=== PATIENT | female | born 1930 | race Two or more races ===

== ENCOUNTER 2017-03-21 08:17 | Day surgery (SDC) | payer BC, OTHER ==
[2017-03-20 10:24] VITALS: BMI 30.8
[~2017-03-21 08:17] MED LIST: TOBRAMYCIN/DEXAMETHASONE OPHTH. OINTMENT 1 TUBE TP ONE
[2017-03-21] MEDS ORDERED: MOXIFLOXACIN HCL 0.5% OPHTHALMIC 3 ML BOTTLE ONE (08:40)
[2017-03-21] MEDS ORDERED: TROPICAMIDE 1% OPHTH SOLN 15 ML BOTTLE ONE (08:40)
[2017-03-21] MEDS ORDERED: PHENYLEPHRINE 2.5% OPHTH SOLN 15 ML BOTTLE ONE (08:41)
[2017-03-21] MEDS ORDERED: CYCLOPENTOLATE HCL 1% OPHTH SOLN 2 ML BOTTLE ONE (08:41)
[2017-03-21] MEDS: TROPICAMIDE 1% OPHTH SOLN 15 ML BOTTLE OP SCH ×3 (08:45→08:55)
[2017-03-21] MEDS: PHENYLEPHRINE 2.5% OPHTH SOLN 15 ML BOTTLE OP SCH ×3 (08:45→08:55)
[2017-03-21] MEDS: MOXIFLOXACIN HCL 0.5% OPHTHALMIC 3 ML BOTTLE OP SCH ×3 (08:45→08:55)
[2017-03-21] MEDS: CYCLOPENTOLATE HCL 1% OPHTH SOLN 2 ML BOTTLE OP SCH ×3 (08:45→08:55)
[2017-03-21 08:57] VITALS: TEMP 98.1
[2017-03-21] MEDS ORDERED: TOBRAMYCIN/DEXAMETHASONE OPHTH. OINTMENT 1 TUBE ONE (08:57)
[2017-03-21] MEDS ORDERED: LIDOCAINE HCL/PF 2% SDV 5ML VIAL ONE ×2 (09:29→11:38)
[2017-03-21] MEDS ORDERED: MIDAZOLAM HCL 2 MG/2 ML SINGLE DOSE VIAL ONE (09:29)
[2017-03-21] MEDS ORDERED: PROPOFOL 20 ML ONE (09:29)
[2017-03-21] MEDS ORDERED: TETRACAINE 0.5% OPHTH SOLN 2 ML BOTTLE OD ONE (10:20)
[2017-03-21] MEDS ORDERED: LIDOCAINE HCL/PF 2% SDV 5ML VIAL INF ONE (10:23)
[2017-03-21] MEDS ORDERED: BUPIVACAINE HCL/PF 0.75% 10 ML VIAL RB ONE (10:23)
[2017-03-21] MEDS ORDERED: POVIDONE-IODINE 5% OPHTHALMIC PREP 30 ML SOLUTION OD ONE (10:25)
[2017-03-21] MEDS ORDERED: LIDOCAINE HCL 1% PRESERVATIVE FREE - 30ML VIAL IO ONE (10:33)
[2017-03-21] MEDS ORDERED: BSS (NA/CA/MG/K) BALANCED SALT SOLUTION OPHTH SOLN 15 ML BOTTLE IO ONE (10:33)
[2017-03-21] MEDS ORDERED: CHONDROITIN SU A/HYALUR SOD 1 KIT IO ONE (10:35)
[2017-03-21] MEDS ORDERED: EPINEPHrine/PF 1 MG/1 ML (1:1,000) AMPULE SQ ONE (10:36)
[2017-03-21] MEDS ORDERED: ACETYLCHOLINE 1:100 INTRA-OCUL 20 MG/2 ML KIT ONE (10:58)
[2017-03-21] MEDS ORDERED: ACETYLCHOLINE 1:100 INTRA-OCUL 20 MG/2 ML KIT IO ONE (10:58)
[2017-03-21] MEDS ORDERED: TOBRAMYCIN/DEXAMETHASONE OPHTH. OINTMENT 1 TUBE TP ONE (11:09)
[2017-03-21] MEDS ORDERED: BUPIVACAINE HCL/PF 0.75% 10 ML VIAL ONE (11:37)
[2017-03-21] MEDS ORDERED: BSS (NA/CA/MG/K) BALANCED SALT SOLUTION OPHTH SOLN 15 ML BOTTLE ONE (11:38)
[2017-03-21] MEDS ORDERED: POVIDONE-IODINE 5% OPHTHALMIC PREP 30 ML SOLUTION ONE (11:38)
[2017-03-21] MEDS ORDERED: LIDOCAINE HCL/PF 1% SDV 5ML VIAL ONE (11:38)
[2017-03-21] MEDS ORDERED: TETRACAINE 0.5% OPHTH SOLN 2 ML BOTTLE ONE (11:38)
[2017-03-21 11:46] VITALS: BP 138/76; PULSE 89
--- NOTE | 2017-03-22 12:58 | OP ---
DATE OF OPERATION: 03/21/2017 SURGEON: Jone Panchal MD PREOPERATIVE DIAGNOSIS: Cataract, right eye. OPERATION: Phacoemulsification and intraocular lens implantation, right eye. POSTOPERATIVE DIAGNOSIS: Cataract, right eye. ANESTHESIA: Local with intravenous sedation. COMPLICATIONS: None. BLOOD LOSS: None. SPECIMEN: None. BRIEF HISTORY: The patient is an 86-year-old woman with past medical history of hypertension who presented with decreased vision in the right eye down to 20/70 due to a 2 to 3+ nuclear sclerotic lens. The risks, benefits, and alternatives to cataract surgery were discussed with the patient. She consented to surgery for the right eye. The patient was brought to the operating room and administered a retrobulbar block after receiving intravenous sedation. She was then prepped and draped in the usual sterile fashion. An eyelid speculum was inserted in the right eye. A paracentesis was made and the anterior chamber was inflated with nonpreserved lidocaine. This was followed by injection of Viscoat. A groove was made into temporal clear cornea which was tunneled forward with a crescent blade. The anterior chamber was entered with a 2.75 keratome. At this point, it was noted that there was decreased dilation of the pupil down to 4 mm. It was determined to place 4 iris hooks around the pupil in order to enlarge and stabilize it. This was done without incident. Four iris hooks were used. A cystotome was then used to make an incision in the center of the capsule and a continuous curvilinear capsulorrhexis was created. The lens was hydrodissected until it was found to rotate freely within the capsular bag. 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 Phacoemulsification was then used to remove the lens in its entirety. Irrigation and aspiration were used to remove residual cortical material. The anterior chamber and capsular bag were reinflated with Provisc and a 24.0-diopter SN60WF AcrySof intraocular lens was injected into the capsular bag using a Cary injector. The lens was dialed into place using a Sinskey hook. Irrigation and aspiration were used to remove residual viscoelastic. The wound was stromally hydrated. The 4 previously placed iris hooks were removed without incident. The wound was stromally hydrated until found to be watertight. 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 One 10-0 nylon suture was placed at the wound. Yet, there continued to be iris prolapse. The strands of iris that were protruding through the wound were excised with a Vannas scissors. The wound was then found to be watertight, the eye with an appropriate pressure, and there was no further iris prolapse. The eyelid speculum was removed from the eye and TobraDex ointment and a patch and shield were placed over the right eye. The patient was transferred to the recovery room in stable condition and will follow up tomorrow. Inna [id number]
== END 2017-03-21 11:46 | disposition home or self-care (01) ==
LOC: JASU-SURG 08:17
PROVIDERS: ATTEND Ophthalmology
PROC: 08RJ3JZ Replacement of Right Lens with Synthetic Substitute, Percutaneous Approach (ICD-10-PCS; principal; 2017-03-21 10:00)
DX: H25.011 Cortical age-related cataract, right eye (principal); H57.03 Miosis

== ENCOUNTER 2017-03-28 07:33 | Day surgery (SDC) | payer BC, OTHER ==
[~2017-03-28 07:33] MED LIST changes: +IRON SUCROSE INJECTION 100 MG in SODIUM CHLORIDE 100 ML IVPB ONE; -TOBRAMYCIN/DEXAMETHASONE OPHTH. OINTMENT 1 TUBE TP ONE
[2017-03-28 14:28] VITALS: BP 124/63; PULSE 73
[2017-03-28 14:45] VITALS: TEMP 98.1
[2017-03-28] MEDS ORDERED: IRON SUCROSE INJECTION 100 MG in SODIUM CHLORIDE 100 ML IVPB ONE (15:00)
== END 2017-03-28 14:35 | disposition home or self-care (01) ==
LOC: JONCNONCHE 07:33 → J7W 13:51 → JONCNONCHE 14:35
PROVIDERS: ATTEND Internal Medicine Hematology & Oncology
PROC: 3E033GC Introduction of Other Therapeutic Substance into Peripheral Vein, Percutaneous Approach (ICD-10-PCS; principal; 2017-03-28)
DX: D50.9 Iron deficiency anemia, unspecified (principal)
CPT/HCPCS: 96365; 96417; J1756

== ENCOUNTER 2017-04-25 07:41 | Day surgery (SDC) | payer BC, OTHER ==
[2017-04-25] MEDS ORDERED: IRON SUCROSE INJECTION 100 MG in SODIUM CHLORIDE 100 ML IVPB ONE (10:00)
[2017-04-25 16:40] VITALS: TEMP 98.7
[2017-04-25 16:42] VITALS: BP 136/62; PULSE 69
== END 2017-04-25 15:35 | disposition home or self-care (01) ==
LOC: JONCNONCHE 07:41 → J7W 14:20 → JONCNONCHE 15:35
PROVIDERS: ATTEND Internal Medicine Hematology & Oncology
PROC: 3E033GC Introduction of Other Therapeutic Substance into Peripheral Vein, Percutaneous Approach (ICD-10-PCS; principal; 2017-04-25)
DX: D50.9 Iron deficiency anemia, unspecified (principal)
CPT/HCPCS: 96365; 96417; J1756

== ENCOUNTER 2017-05-09 06:20 | Day surgery (SDC) | payer BC, OTHER ==
[2017-05-08 12:38] VITALS: BMI 29.8
[~2017-05-09 06:20] MED LIST changes: -IRON SUCROSE INJECTION 100 MG in SODIUM CHLORIDE 100 ML IVPB ONE; +TOBRAMYCIN/DEXAMETHASONE OPHTH. OINTMENT 1 TUBE TP ONE
[2017-05-09] MEDS: MOXIFLOXACIN HCL 0.5% OPHTHALMIC 3 ML BOTTLE OP SCH ×3 (07:00→07:10)
[2017-05-09] MEDS: PHENYLEPHRINE 2.5% OPHTH SOLN 15 ML BOTTLE OP SCH ×3 (07:00→07:10)
[2017-05-09] MEDS: TROPICAMIDE 1% OPHTH SOLN 15 ML BOTTLE OP SCH ×3 (07:00→07:10)
[2017-05-09] MEDS: CYCLOPENTOLATE HCL 1% OPHTH SOLN 2 ML BOTTLE OP SCH ×3 (07:00→07:10)
--- NOTE | 2017-05-09 08:09 | HP ---
History & Physical Update - History History: No Change - Physical Physical: No Change - Assessment Assessment: No Change - Plan Plan: No Change
[2017-05-09] MEDS ORDERED: BUPIVACAINE HCL/PF 0.75% 10 ML VIAL RB ONE (08:22)
[2017-05-09] MEDS ORDERED: LIDOCAINE HCL/PF 2% SDV 5ML VIAL INF ONE (08:22)
[2017-05-09] MEDS ORDERED: POVIDONE-IODINE 5% OPHTHALMIC PREP 30 ML SOLUTION OS ONE (08:24)
[2017-05-09] MEDS ORDERED: CHONDROITIN SU A/HYALUR SOD 1 KIT IO ONE (08:29)
[2017-05-09] MEDS ORDERED: MIDAZOLAM HCL 2 MG/2 ML SINGLE DOSE VIAL ONE (08:39)
[2017-05-09] MEDS ORDERED: TOBRAMYCIN/DEXAMETHASONE OPHTH. OINTMENT 1 TUBE TP ONE (08:52)
[2017-05-09 09:09] VITALS: TEMP 97.7
[2017-05-09] MEDS ORDERED: ACETAMINOPHEN 325 MG TABLET (FP) PO PRN (09:27)
[2017-05-09] MEDS ORDERED: ONDANSETRON 4 MG/2 ML VIAL IVPUSH PRN (09:27)
[2017-05-09] MEDS ORDERED: LACTATED RINGERS SOLUTION 1,000 ML IV SCH (09:30)
[2017-05-09] MEDS ORDERED: EPINEPHrine/PF 1 MG/1 ML (1:1,000) AMPULE ONE (10:13)
[2017-05-09] MEDS ORDERED: TOBRAMYCIN/DEXAMETHASONE OPHTH. OINTMENT 1 TUBE ONE (10:13)
[2017-05-09] MEDS ORDERED: TETRACAINE 0.5% OPHTH SOLN 2 ML BOTTLE ONE (10:14)
[2017-05-09] MEDS ORDERED: BUPIVACAINE HCL/PF 0.75% 10 ML VIAL ONE (10:14)
[2017-05-09] MEDS ORDERED: LIDOCAINE HCL/PF 2% SDV 5ML VIAL ONE (10:14)
[2017-05-09] MEDS ORDERED: POVIDONE-IODINE 5% OPHTHALMIC PREP 30 ML SOLUTION ONE (10:14)
[2017-05-09 12:01] VITALS: BP 134/65; PULSE 88
--- NOTE | 2017-05-09 13:16 | OP ---
DATE OF OPERATION: 05/09/2017 SURGEON: Jone Panchal MD PREOPERATIVE DIAGNOSIS: Cataract, left eye. OPERATION: Phacoemulsification and intraocular lens implantation, left eye. POSTOPERATIVE DIAGNOSIS: Cataract, left eye. ANESTHESIA: Local with intravenous sedation. COMPLICATIONS: None. BLOOD LOSS: None. SPECIMEN: None. BRIEF HISTORY: The patient is an 86-year-old woman with a past medical history of hypertension, who presented with decreased vision in the left eye down to 20/40 due to a 2+ to 3+ nuclear sclerotic lens. 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 DESCRIPTION OF PROCEDURE: The patient was brought to the operating room and administered retrobulbar block after receiving intravenous sedation. She was then prepped and draped in the usual sterile fashion, and an eyelid speculum was inserted in the left eye. A paracentesis was made, and the anterior chamber was inflated with viscoelastic. At this point, the pupil was poorly dilated down to about 3.5 mm. It was determined to place 5 iris hooks around the iris in order to enlarge and stabilize the iris. This was done without incident. A groove was made in the superotemporal clear cornea which was tunneled forward with a crescent blade. The anterior chamber was entered with a 2.75 keratome. The cystotome was used to make an incision in the center of the capsule, and a continuous curvilinear capsulorrhexis was created. The lens was hydrodissected until it was found to rotate freely within the capsular bag. Phacoemulsification was then used to remove the lens in its entirety. Irrigation and aspiration were used to remove residual cortical material. The anterior chamber and capsular bag were reinflated with Provisc, and a 24.0-diopter SN60WF AcrySof intraocular lens was injected into the capsular bag using the Lemont injector. The lens was dialed into place using a Sinskey hook. Irrigation and aspiration were used to remove residual Viscoelastic. The wound was stromally hydrated until it was found to be watertight and the eye was at an appropriate pressure. The eyelid speculum was removed from the eye, and TobraDex ointment and a patch and shield were placed over the left eye. The patient was transferred to the recovery room in stable condition and will follow up tomorrow. Inna [id number]
== END 2017-05-09 09:35 | disposition home or self-care (01) ==
LOC: JASU-SURG 06:20
PROVIDERS: ATTEND Ophthalmology
PROC: 08RK3JZ Replacement of Left Lens with Synthetic Substitute, Percutaneous Approach (ICD-10-PCS; principal; 2017-05-09 08:00)
DX: H25.12 Age-related nuclear cataract, left eye (principal); H57.04 Mydriasis